=== PATIENT | male | born 1945 | race Caucasian/White ===

== ENCOUNTER 2020-06-09 09:58 | Outpatient (CLI) | payer MEDICARE ==
--- NOTE | 2020-06-09 10:26 | RAD ---
EXAM: 3 views of the left knee HISTORY: Left knee pain COMPARISON: None FINDINGS: No knee effusion is seen. There is hardware in the distal aspect of the femur spanning a fr acture. Multiple fractured screws are seen in the hardware. There is possible continued lucency through the femur fracture on the lateral radiograph which may suggest nonunion. There is remodeling of the patella secondary to a healed patellar fracture. There is no evidence of acute fracture or dislocation. No significant degenerative changes are seen. Mild diffuse soft tissue swelling is prese nt. IMPRESSION: Postsurgical changes of the distal femur with incompletely healed femur fracture and grecia te healed patellar fracture
== END 2020-06-09 09:59 | disposition home or self-care (01) ==
LOC: NAV RAD 09:58
PROVIDERS: ATTEND Family Medicine
DX: M25.562 Pain in left knee (principal); S72.92XK Unspecified fracture of left femur, subsequent encounter for closed fracture with nonunion; Z98.890 Other specified postprocedural states

== ENCOUNTER 2020-12-15 10:39 | Outpatient (CLI) | payer MEDICARE | END 2020-12-15 10:40 | disposition home or self-care (01) | LOC: NAV RAD 10:39 | PROVIDERS: ATTEND Family Medicine | DX: M79.651 Pain in right thigh (principal) ==